=== PATIENT | female | born 1990 | race Caucasian/White ===

== ENCOUNTER 2016-10-18 10:07 | Inpatient (IN) | payer BC ==
[2016-10-18 10:42] VITALS: BMI 20.1
--- NOTE | 2016-10-18 13:44 | HP ---
COWS - Scale Resting Pulse: 1= [place] 81-100 Sweatin= Chills/Flushing Restless Observation: 1= Difficult to Sit Still Pupil Size: 0= Normal to Room Light Bone or Joint Aches: 2= Severe Diffuse Aches Runny Nose/ Eye Tearin= Runny Nose/Eyes GI Upset > 30mins: 3= Vomiting/Diarrhea Tremor Observation: 2= Slight Tremor Visible Yawning Observation: 1= 1-2x During Session Anxiety or Irritability: 2=Irritable/Anxious Goose Flesh Skin: 3=Piloerection COWS Score: 18 CIWA Score - CIWA Score Nausea/Vomitin Muscle Tremors: 3 Anxiety: 4-Mod. Anxious/Guarded Agitation: 0-Normal Activity Paroxysmal Sweats: 3 Orientation: 0-Oriented Tacttile Disturbances: 2-Mild Itch/Numbness/Burn Auditory Disturbances: 0-None Visual Disturbances: 2-Mild Sensitivity Headache: 2-Mild CIWA-Ar Total Score: 21 Admission ROS [facility] - HPI Chief Complaint: "I don't want this to get worse or one day from it. I want a better life for myself and for my family." Pt. is here to Detox from Heroin and Xanax. Allergies/Adverse Reactions: Allergies Allergy/AdvReac Type Severity Reaction Status Date / Time No Known Allergies Allergy Verified 10/18/16 12:36 History of Present Illness: Pt. is a 26 YO female here to Detox from Heroin and Xanax. This is pt.'s first Detox admission at [facility]. Exam Limitations: No Limitations - Ebola screening Have you traveled outside of the country in the last 21 days: No Have you had contact with anyone from an Ebola affected area: No Have you been sick,other than usual withdrawal symptoms: No Do you have a fever: No - Review of Systems Constitutional: Chills, Diaphoresis, Fever, Malaise, Night Sweats, Changes in sleep EENT: reports: Tearing, Nose Congestion, Sinus Pressure Respiratory: reports: No Symptoms reported Cardiac: reports: No Symptoms Reported GI: reports: Constipated, Nausea, Poor Appetite, Vomiting, Indigestion ( Heartburn.), Abdominal cramping : reports: Other (History of Frequent UTI's.) Musculoskeletal: reports: No Symptoms Reported Integumentary: reports: No Symptoms Reported Neuro: reports: Headache (Migraines, Not Current.), Tremors Endocrine: reports: No Symptoms Reported Hematology: reports: Easy Bruising Psychiatric: reports: Judgement Intact, Mood/Affect Appropiate, Orientated x3, Anxious, Depressed Other Systems: Reviewed and Negative Patient History - Patient Medical History Hx Anemia: No Hx Asthma: Yes (On meds.) Hx Chronic Obstructive Pulmonary Disease (COPD): No Hx Cancer: No Hx Cardiac Disorders: No Hx Congestive Heart Failure: No Hx Hypertension: No Hx Hypercholesterolemia: No Hx Pacemaker: No HX Cerebrovascular Accident: No Hx Seizures: No Hx Dementia: No Hx Diabetes: No Hx Gastrointestinal Disorders: No Hx Liver Disease: No Hx Genitourinary Disorders: No Hx Sexually Transmitted Disorders: No Hx Renal Disease (ESRD): No Hx Thyroid Disease: No Hx Human Immunodeficiency Virus (HIV): No (Last tested: approx. 6 months ago: NEGATIVE.) Hx Hepatitis C: No (Never Tested.) Hx Depression: Yes (Formerly on meds.; NO MEDS. CURRENTLY.) Hx Suicide Attempt: No (PATIENT DENIES CURRENT SI / HI.) Hx Bipolar Disorder: No Hx Schizophrenia: No Other Medical History: DENIES. - Patient Surgical History Past Surgical History: No Hx Neurologic Surgery: No Hx Cataract Extraction: No Hx Cardiac Surgery: No Hx Lung Surgery: No Hx Breast Surgery: No Hx Breast Biopsy: No Hx Abdominal Surgery: No Hx Appendectomy: No Hx Cholecystectomy: No Hx Genitourinary Surgery: No Hx Section: No Hx Orthopedic Surgery: No Hx Hysterectomy: No Other Surgical History: Bunion Removal, Bilateral Feet (2012). Anesthesia Reaction: No - PPD History Previous Implant?: Yes Documented Results: Negative w/o proof Implanted On Prior R Admission?: No PPD to be Administered?: Yes - Reproductive History Patient is a Female of Child Bearing Age (11 -55 yrs old): Yes Last Menstrual Period: 10/14/16 Patient : No - Smoking Cessation Smoking history: Current every day smoker Have you smoked in the past 12 months: Yes Aproximately how many cigarettes per day: 20 Cigars Per Day: 0 Hx Chewing Tobacco Use: No Initiated information on smoking cessation: Yes 'Breaking Loose' booklet given: 10/18/16 (GIVEN ON UNIT.) - Substance & Tx. History Hx Alcohol Use: No Hx Substance Use: Yes Substance Use Type: Cocaine, Heroin, Tranquilizers Hx Substance Use Treatment: No - Substances Abused Heroin Route: Inhalation Frequency: Daily Amount used: 10 bags Age of first use: 24 Date of Last Use: 10/18/16 Cocaine Route: Inhalation Frequency: 3-6 times per week Amount used: $60 Age of first use: 16 Date of Last Use: 10/16/16 Alprazolam (Xanax) Route: Oral Frequency: Daily Amount used: 2-3(.5mg) Age of first use: 21 Date of Last Use: 10/18/16 Admission Physical Exam [facility] - Vital Signs Vital Signs: Vital Signs - 24 hr 10/18/16 10:38 Temperature 97.2 F L Pulse Rate 90 Respiratory 20 Rate Blood Pressure 116/61 - Physical General Appearance: Yes: Nourished, Appropriately Dressed, Mild Distress, Tremorous, Anxious HEENTM: Yes: Hearing grossly Normal, Normocephalic, Normal Voice, NILDA, Pharynx Normal Respiratory: Yes: Chest Non-Tender, Lungs Clear, No Respiratory Distress, No Accessory Muscle Use Neck: Yes: No masses,lesions,Nodules, Supple, Trachea in good position Breast: Yes: Breast Exam Deferred Cardiology: Yes: Regular Rhythm, Regular Rate, S1, S2 Abdominal: Yes: Normal Bowel Sounds, Non Tender, Flat, Soft Genitourinary: Yes: Within Normal Limits Back: Yes: Decreased Range of Motion Musculoskeletal: Yes: Gait Steady Extremities: Yes: Normal Range of Motion, Non-Tender, Tremors Neurological: Yes: Fully Oriented, Alert, Normal Mood/Affect, Normal Response Integumentary: Yes: Normal Color, Dry, Warm Lymphatic: Yes: Within Normal Limits - Diagnostic (1) Alcohol dependence with uncomplicated withdrawal Current Visit: Yes Status: Acute (2) Sedative, hypnotic or anxiolytic dependence with withdrawal, uncomplicated Current Visit: Yes Status: Acute (3) Cocaine dependence, uncomplicated Current Visit: Yes Status: Acute (4) Nicotine dependence Current Visit: Yes Status: Chronic Qualifiers: Nicotine product type: cigarettes Substance use status: uncomplicated Qualified Code(s): F17.210 - Nicotine dependence, cigarettes, uncomplicated (5) Asthma Current Visit: Yes Status: Chronic Qualifiers: Asthma severity: mild persistent Asthma complication type: uncomplicated Qualified Code(s): J45.30 - Mild persistent asthma, uncomplicated (6) History of depression Current Visit: Yes Status: Chronic Cleared for Admission [facility] - Detox or Rehab [facility] Level of Care: Medically Managed Detox Regimen/Protocol: Methadone/Valium [facility] Breath Alcohol Content Breath Alcohol Content: 0 Urine Pregancy Test - Result Urine Test Results: Negative- NO Line Present Urine Drug Screen - Results Drug Screen Negative: No Urine Drug Screen Results: DEVEN-Cocaine, OPI-Opiates, BZO-Benzodiazepines, TCA- Tricyclic Antidepress, OXY-Oxycodone
[2016-10-18] MEDS ORDERED: ACETAMINOPHEN 325 MG TABLET (FP) PO PRN (14:15)
[2016-10-18] MEDS ORDERED: diazePAM 5 MG TABLET PO ONE (14:15)
[2016-10-18] MEDS ORDERED: guaiFENesin/D-METHORPHAN HB 10 ML UNIT-DOSE CUPS PO PRN (14:15)
[2016-10-18] MEDS ORDERED: METHADONE HCL 10 MG TABLET (FOR DETOX USE ONLY) PO ONE ×2 (14:15→23:00)
[2016-10-18] MEDS ORDERED: IBUPROFEN 400 MG TABLET (FP) PO PRN (14:15)
[2016-10-18] MEDS ORDERED: MAGNESIUM CITRATE 300 ML BOTTLE PO PRN (14:15)
[2016-10-18] MEDS ORDERED: NICOTINE POLACRILEX 2 MG GUM BC PRN (14:15)
[2016-10-18] MEDS ORDERED: MAGNESIUM HYDROX 2400MG/30ML ORAL SUSPENSION 30 ML CUP PO PRN (14:15)
[2016-10-18] MEDS ORDERED: LOPERAMIDE HCL 2 MG CAPSULE PO PRN (14:15)
[2016-10-18] MEDS ORDERED: MAG HYDROX/AL HYDROX/SIMETH 30 ML UNIT-DOSE CUP PO PRN (14:15)
[2016-10-18] MEDS ORDERED: P-EPHED 60MG/TRIPROLIDI 2.5MG TABLET PO PRN (14:15)
[2016-10-18] MEDS ORDERED: MENTHOL/PHENOL 1 EACH UD MM PRN (14:15)
[2016-10-18] MEDS ORDERED: ALBUTEROL SO4 6.7 GM HFA INHALER IH PRN (14:21)
[2016-10-18] MEDS: NICOTINE 21 MG/24 HOURS TOPICAL PATCH TD SCH (15:38)
[2016-10-18] MEDS: diazePAM 5 MG TABLET PO SCH ×2 (15:38→22:30)
[2016-10-18 18:23] LABS: URINE APPEARANCE CLOUDY; URINE BILIRUBIN NEGATIVE (NEGATIVE); URINE BLOOD 1+ (NEGATIVE); URINE COLOR LTYELLOW; URINE GLUCOSE (UA) NEGATIVE (NEGATIVE); URINE KETONE NEGATIVE (NEGATIVE); URINE LEUK ESTERASE NEGATIVE (NEGATIVE); URINE NITRITE NEGATIVE (NEGATIVE); URINE PROTEIN NEGATIVE (NEGATIVE); URINE UROBILINOGEN NEGATIVE mg/dL (0.2-1.0)
[2016-10-18 18:45] LABS: URINE RBC 2 /hpf (0-3); URINE WBC 5 /hpf (3-5); YEAST MANY
[2016-10-18] MEDS ORDERED: PATIENT'S OWN MEDICATION (NON-FORMULARY) (Fluticasone/Vilanterol [Breo Ellipta 200-25 Mcg IH SCH (22:00)
[2016-10-18] MEDS: MONTELUKAST NA 10 MG TABLET PO SCH (22:31)
[2016-10-18] MEDS: THIAMINE HCL 100 MG TABLET (FP) PO SCH (22:31)
[2016-10-18] MEDS: diphenhydrAMINE HCL 50 MG CAPSULE PO PRN (22:32)
[2016-10-19] MEDS: diazePAM 5 MG TABLET PO SCH ×3 (05:51→22:30)
--- NOTE | 2016-10-19 08:44 | CONSULT ---
[facility] Psychiatric Consult - Data Date of interview: 10/19/16 Admission source: [facility] Identifying data: This is 26 years old female with no psychiatric hospitalization history intoxicated with : Alcohol, Cocaine, Opioids, Xanax and Nicotine Substance Abuse History: - Smoking Cessation. Smoking history: Current every day smoker. Have you smoked in the past 12 months: Yes. Aproximately how many cigarettes per day: 20. Cigars Per Day: 0. Hx Chewing Tobacco Use: No. Initiated information on smoking cessation: Yes. 'Breaking Loose' booklet given : 10/18/16 (GIVEN ON UNIT.). - Substance & Tx. History. Hx Alcohol Use: No. Hx Substance Use: Yes. Substance Use Type: Cocaine, Heroin, Tranquilizers. Hx Substance Use Treatment: No. - Substances Abused. Heroin. Route: Inhalation. Frequency: Daily. Amount used: 10 bags. Age of first use: 24. Date of Last Use: 10/18/16. Cocaine. Route: Inhalation. Frequency: 3-6 times per week. Amount used: $60. Age of first use: 16. Date of Last Use: . Alprazolam (Xanax). Route: Oral. Frequency: Daily. Amount used: 2- 3(.5mg). Age of first use: 21. Date of Last Use: 10/18/16 Medical History: Denies any significant medical problem Psychiatric History: As per chart tehre is a history of depression, patoent denies suicidal history, reports no medications taking prior to admission Physical/Sexual Abuse/Trauma History: Denies Additional Comment: Observation. Detox Unit Care Protocol Mental Status Exam - Mental Status Exam Alert and Oriented to: Person Cognitive Function: Fair Patient Appearance: Unkempt Mood: Sad Affect: Flat Patient Behavior: Sedated Speech Pattern: Delayed Voice Loudness: Mildly Soft/Quiet Thought Disorder: Being Controlled Hallucinations: Denies Suicidal Ideation: Denies Homicidal Ideation: Denies Insight/Judgement: Fair Sleep: Difficulty falling asleep Appetite: Weight loss Muscle strength/Tone: Mild Hypotonicity Gait/Station: Shuffling Additional Comments: Observation. Detox Unit Care Protocol Psychiatric Findings - Problem List ([place] 1, 2,3) (1) Alcohol dependence with uncomplicated withdrawal Current Visit: Yes Status: Acute (2) Cocaine dependence, uncomplicated Current Visit: Yes Status: Acute (3) Opioid dependence with withdrawal Current Visit: Yes Status: Acute (4) Sedative, hypnotic or anxiolytic dependence with withdrawal, uncomplicated Current Visit: Yes Status: Acute (5) Nicotine dependence Current Visit: Yes Status: Chronic Qualifiers: Nicotine product type: cigarettes Substance use status: uncomplicated Qualified Code(s): F17.210 - Nicotine dependence, cigarettes, uncomplicated (6) Drug-induced mood disorder Current Visit: Yes Status: Acute - Initial Treatment Plan Initial Treatment Plan: Observation. Detox Unit Care Protocol
[2016-10-19] MEDS ORDERED: METHADONE HCL 10 MG TABLET (FOR DETOX USE ONLY) PO SCH (10:00)
[2016-10-19 10:04] LABS: MCH 33.1 pg (25.7-33.7); MCHC 34.4 g/dl (32.0-36.0); MEAN CELL VOLUME 96.2 fl (80-96); MEAN PLT VOLUME 8.2 fl (7.5-11.1); PLATELET COUNT 238 K/MM3 (134-434); RDW 13.2 % (11.6-15.6); WHITE BLOOD COUNT 5.9 K/mm3 (4.0-10.0)
[2016-10-19] MEDS: PRENATAL VITAMINS W/ FOLIC ACID TABLET (FP) PO SCH (10:18)
[2016-10-19] MEDS: NICOTINE 21 MG/24 HOURS TOPICAL PATCH TD SCH (10:19)
[2016-10-19 10:26] LABS: ALBUMIN 3.5 g/dl (3.4-5.0); ALK PHOS 52 U/L (45-117); ANION GAP 9 (8-16); BILIRUBIN,TOTAL 0.5 mg/dL (0.2-1.0); CALCIUM 8.9 mg/dL (8.5-10.1); CO2 27 mmol/L (21-32); CREATININE 0.8 mg/dL (0.55-1.02); GLUCOSE,RANDOM 87 mg/dL (74-106); SGOT/AST 11 U/L (15-37); SGPT/ALT 18 U/L (12-78); TOT PROT 6.4 g/dl (6.4-8.2)
[2016-10-19 11:22] LABS: HIV 1 & 2 AB NEGATIVE; HIV 1 AGp24 NEGATIVE
--- NOTE | 2016-10-19 12:01 | PN ---
[facility] CIWA - CIWA Score Nausea/Vomitin-No Nausea/No Vomiting Muscle Tremors: 4-Moderate,w/Arms Extend Anxiety: 4-Mod. Anxious/Guarded Agitation: 4-Moderately Restless Paroxysmal Sweats: 3 Orientation: 0-Oriented Tacttile Disturbances: 0-None Auditory Disturbances: 0-None Visual Disturbances: 0-None Headache: 0-None Present CIWA-Ar Total Score: 15 S COWS - Scale Resting Pulse: 1= [place] 81-100 Sweatin=Flushed/Facial Moisture Restless Observation: 1= Difficult to Sit Still Pupil Size: 0= Normal to Room Light Bone or Joint Aches: 2= Severe Diffuse Aches Runny Nose/ Eye Tearin= Runny Nose/Eyes GI Upset > 30mins: 0= None Tremor Observation of Outstretched Hands: 2= Slight Tremor Visible Yawning Observation: 1= 1-2x During Session Anxiety or Irritability: 2=Irritable/Anxious Goose Flesh Skin: 3=Piloerection COWS Score: 16 [facility] Progress Note (SOAP) Subjective: anxiety shakes sweats interrupted sleep Objective: 10/19/16 11:56 Vital Signs Temperature 97.5 F L 10/19/16 10:48 Pulse Rate 88 10/19/16 10:48 Respiratory Rate 18 10/19/16 10:48 Blood Pressure 147/87 10/19/16 10:48 O2 Sat by Pulse Oximetry (%) Laboratory Tests 10/18/16 10/19/16 10/19/16 16:45 07:00 07:00 WBC 5.9 RBC 4.30 Hgb 14.2 Hct 41.4 MCV 96.2 H MCH 33.1 MCHC 34.4 RDW 13.2 Plt Count 238 MPV 8.2 Sodium Potassium Chloride Carbon Dioxide Anion Gap BUN Creatinine Creat Clearance w eGFR Random Glucose Calcium Total Bilirubin AST ALT Alkaline Phosphatase Total Protein Albumin Urine Color Ltyellow Urine Appearance Cloudy Urine pH 8.0 Ur Specific [place] 1.015 Urine Protein Negative Urine Glucose (UA) Negative Urine Ketones Negative Urine Blood 1+ H Urine Nitrite Negative Urine Bilirubin Negative Urine Urobilinogen Negative Ur Leukocyte Esterase Negative Urine RBC 2 Urine WBC 5 Ur Epithelial Cells Rare Urine Yeast Many HIV 1&2 Antibody Screen Negative HIV P24 Antigen Negative 10/19/16 07:00 WBC RBC Hgb Hct MCV MCH MCHC RDW Plt Count MPV Sodium 140 Potassium 4.0 Chloride 104 Carbon Dioxide 27 Anion Gap 9 BUN 7 Creatinine 0.8 Creat Clearance w eGFR > 60 Random Glucose 87 Calcium 8.9 Total Bilirubin 0.5 AST 11 L ALT 18 Alkaline Phosphatase 52 Total Protein 6.4 Albumin 3.5 Urine Color Urine Appearance Urine pH Ur Specific [place] Urine Protein Urine Glucose (UA) Urine Ketones Urine Blood Urine Nitrite Urine Bilirubin Urine Urobilinogen Ur Leukocyte Esterase Urine RBC Urine WBC Ur Epithelial Cells Urine Yeast HIV 1&2 Antibody Screen HIV P24 Antigen awake/alert ambulating no acute distress Assessment: 10/19/16 11:57 withdrawal sx Plan: continue detox increase fluids clonidine 0.1mg x one
[2016-10-19] MEDS ORDERED: cloNIDine HCL 0.1 MG TABLET PO ONE (12:30)
[2016-10-19] MEDS: BUDESONIDE/FORMETEROL FUMARATE 160/4.5 mcg INHALER IH SCH ×2 (14:54→22:31)
[2016-10-19] MEDS: diazePAM 5 MG TABLET PO PRN (17:23)
[2016-10-19] MEDS: diphenhydrAMINE HCL 50 MG CAPSULE PO PRN (22:30)
[2016-10-19] MEDS: MONTELUKAST NA 10 MG TABLET PO SCH (22:30)
[2016-10-19] MEDS: THIAMINE HCL 100 MG TABLET (FP) PO SCH (22:30)
[2016-10-20] MEDS: diazePAM 5 MG TABLET PO PRN ×2 (06:36→17:20)
[2016-10-20] MEDS: METHADONE HCL 5 MG TABLET (FOR DETOX USE ONLY) PO SCH (10:49)
[2016-10-20] MEDS: diazePAM 5 MG TABLET PO SCH ×2 (10:49→22:23)
[2016-10-20] MEDS: BUDESONIDE/FORMETEROL FUMARATE 160/4.5 mcg INHALER IH SCH ×2 (10:49→22:22)
[2016-10-20] MEDS: PRENATAL VITAMINS W/ FOLIC ACID TABLET (FP) PO SCH (10:49)
[2016-10-20] MEDS: NICOTINE 21 MG/24 HOURS TOPICAL PATCH TD SCH (10:50)
--- NOTE | 2016-10-20 12:46 | PN ---
[facility] CIWA - CIWA Score Nausea/Vomitin-No Nausea/No Vomiting Muscle Tremors: 3 Anxiety: 4-Mod. Anxious/Guarded Agitation: 3 Paroxysmal Sweats: 3 Orientation: 0-Oriented Tacttile Disturbances: 0-None Auditory Disturbances: 0-None Visual Disturbances: 0-None Headache: 0-None Present CIWA-Ar Total Score: 13 [facility] COWS - Scale Resting Pulse: 1= [place] 81-100 Sweatin=Flushed/Facial Moisture Restless Observation: 1= Difficult to Sit Still Pupil Size: 0= Normal to Room Light Bone or Joint Aches: 1= Mild Discomfort Runny Nose/ Eye Tearin= Runny Nose/Eyes GI Upset > 30mins: 2= Nausea/Diarrhea Tremor Observation of Outstretched Hands: 2= Slight Tremor Visible Yawning Observation: 1= 1-2x During Session Anxiety or Irritability: 2=Irritable/Anxious Goose Flesh Skin: 0=Smooth Skin COWS Score: 14 S Progress Note (SOAP) Subjective: Anxiety,sweating,tremors,interrupted sleep,restless,nausea Objective: 10/20/16 12:45 Vital Signs - 8 hr 10/20/16 10/20/16 06:00 09:43 Temperature 97.3 F L 97.5 F L Pulse Rate 84 84 Respiratory 16 18 Rate Blood Pressure 107/51 105/54 Laboratory Last Values WBC 5.9 K/mm3 (4.0-10.0) 10/19/16 07:00 RBC 4.30 M/mm3 (3.60-5.2) 10/19/16 07:00 Hgb 14.2 GM/dL (10.7-15.3) 10/19/16 07:00 Hct 41.4 % (32.4-45.2) 10/19/16 07:00 MCV 96.2 fl (80-96) H 10/19/16 07:00 MCH 33.1 pg (25.7-33.7) 10/19/16 07:00 MCHC 34.4 g/dl (32.0-36.0) 10/19/16 07:00 RDW 13.2 % (11.6-15.6) 10/19/16 07:00 Plt Count 238 K/MM3 (134-434) 10/19/16 07:00 MPV 8.2 fl (7.5-11.1) 10/19/16 07:00 Sodium 140 mmol/L (136-145) 10/19/16 07:00 Potassium 4.0 mmol/L (3.5-5.1) 10/19/16 07:00 Chloride 104 mmol/L (98-107) 10/19/16 07:00 Carbon Dioxide 27 mmol/L (21-32) 10/19/16 07:00 Anion Gap 9 (8-16) 10/19/16 07:00 BUN 7 mg/dL (7-18) 10/19/16 07:00 Creatinine 0.8 mg/dL (0.55-1.02) 10/19/16 07:00 Creat Clearance w eGFR > 60 (>60) 10/19/16 07:00 Random Glucose 87 mg/dL (74-106) 10/19/16 07:00 Calcium 8.9 mg/dL (8.5-10.1) 10/19/16 07:00 Total Bilirubin 0.5 mg/dL (0.2-1.0) 10/19/16 07:00 AST 11 U/L (15-37) L 10/19/16 07:00 ALT 18 U/L (12-78) 10/19/16 07:00 Alkaline Phosphatase 52 U/L (45-117) 10/19/16 07:00 Total Protein 6.4 g/dl (6.4-8.2) 10/19/16 07:00 Albumin 3.5 g/dl (3.4-5.0) 10/19/16 07:00 Urine Color Ltyellow 10/18/16 16:45 Urine Appearance Cloudy 10/18/16 16:45 Urine pH 8.0 (5.0-8.0) 10/18/16 16:45 Ur Specific [place] 1.015 (1.005-1.025) 10/18/16 16:45 Urine Protein Negative (NEGATIVE) 10/18/16 16:45 Urine Glucose (UA) Negative (NEGATIVE) 10/18/16 16:45 Urine Ketones Negative (NEGATIVE) 10/18/16 16:45 Urine Blood 1+ (NEGATIVE) H 10/18/16 16:45 Urine Nitrite Negative (NEGATIVE) 10/18/16 16:45 Urine Bilirubin Negative (NEGATIVE) 10/18/16 16:45 Urine Urobilinogen Negative mg/dL (0.2-1.0) 10/18/16 16:45 Ur Leukocyte Esterase Negative (NEGATIVE) 10/18/16 16:45 Urine RBC 2 /hpf (0-3) 10/18/16 16:45 Urine WBC 5 /hpf (3-5) 10/18/16 16:45 Ur Epithelial Cells Rare /hpf (FEW) 10/18/16 16:45 Urine Yeast Many 10/18/16 16:45 RPR Titer Nonreactive (NONREACTIVE) 10/19/16 07:00 Hepatitis C Antibody <0.1 s/co ratio (0.0-0.9) 10/18/16 07:00 HIV 1&2 Antibody Screen Negative 10/19/16 07:00 HIV P24 Antigen Negative 10/19/16 07:00 labs noted,we'll repeat U/A Assessment: 10/20/16 12:46 Withdrawal sx. Plan: Continue detox
[2016-10-20] MEDS: MONTELUKAST NA 10 MG TABLET PO SCH (22:22)
[2016-10-20] MEDS: diphenhydrAMINE HCL 50 MG CAPSULE PO PRN (22:23)
[2016-10-20] MEDS: THIAMINE HCL 100 MG TABLET (FP) PO SCH (22:23)
[2016-10-20] MEDS: hydrOXYzine PAMOATE 50 MG CAPSULE (FP) PO PRN (23:04)
[2016-10-21] MEDS: diazePAM 5 MG TABLET PO PRN (06:55)
[2016-10-21] MEDS: PRENATAL VITAMINS W/ FOLIC ACID TABLET (FP) PO SCH (10:50)
[2016-10-21] MEDS: NICOTINE 21 MG/24 HOURS TOPICAL PATCH TD SCH (10:50)
[2016-10-21] MEDS: diazePAM 5 MG TABLET PO SCH ×2 (10:50→22:33)
[2016-10-21] MEDS: METHADONE HCL 5 MG TABLET (FOR DETOX USE ONLY) PO SCH (10:50)
[2016-10-21] MEDS: BUDESONIDE/FORMETEROL FUMARATE 160/4.5 mcg INHALER IH SCH ×2 (10:50→22:33)
--- NOTE | 2016-10-21 11:37 | PN ---
[facility] Progress Note (SOAP) Subjective: interrupted sleep, sweats, Objective: 10/21/16 11:36 Vital Signs Temperature 97.3 F L 10/21/16 10:06 Pulse Rate 83 10/21/16 10:06 Respiratory Rate 18 10/21/16 10:06 Blood Pressure 128/54 10/21/16 10:06 O2 Sat by Pulse Oximetry (%) Laboratory Tests 10/18/16 10/18/16 10/19/16 07:00 16:45 07:00 WBC RBC Hgb Hct MCV MCH MCHC RDW Plt Count MPV Sodium Potassium Chloride Carbon Dioxide Anion Gap BUN Creatinine Creat Clearance w eGFR Random Glucose Calcium Total Bilirubin AST ALT Alkaline Phosphatase Total Protein Albumin Urine Color Ltyellow Urine Appearance Cloudy Urine pH 8.0 Ur Specific [place] 1.015 Urine Protein Negative Urine Glucose (UA) Negative Urine Ketones Negative Urine Blood 1+ H Urine Nitrite Negative Urine Bilirubin Negative Urine Urobilinogen Negative Ur Leukocyte Esterase Negative Urine RBC 2 Urine WBC 5 Ur Epithelial Cells Rare Urine Yeast Many RPR Titer Hepatitis C Antibody <0.1 HIV 1&2 Antibody Screen Negative HIV P24 Antigen Negative 10/19/16 10/19/16 10/19/16 07:00 07:00 07:00 WBC 5.9 RBC 4.30 Hgb 14.2 Hct 41.4 MCV 96.2 H MCH 33.1 MCHC 34.4 RDW 13.2 Plt Count 238 MPV 8.2 Sodium 140 Potassium 4.0 Chloride 104 Carbon Dioxide 27 Anion Gap 9 BUN 7 Creatinine 0.8 Creat Clearance w eGFR > 60 Random Glucose 87 Calcium 8.9 Total Bilirubin 0.5 AST 11 L ALT 18 Alkaline Phosphatase 52 Total Protein 6.4 Albumin 3.5 Urine Color Urine Appearance Urine pH Ur Specific [place] Urine Protein Urine Glucose (UA) Urine Ketones Urine Blood Urine Nitrite Urine Bilirubin Urine Urobilinogen Ur Leukocyte Esterase Urine RBC Urine WBC Ur Epithelial Cells Urine Yeast RPR Titer Nonreactive Hepatitis C Antibody HIV 1&2 Antibody Screen HIV P24 Antigen pt aox3 in nad ambulating Assessment: 10/21/16 11:36 withdrawal sx's Plan: cont. detox increase fluids
--- NOTE | 2016-10-21 12:57 | EKG ---
Test Reason : Blood Pressure : / mmHG Vent. Rate : 058 BPM Atrial Rate : 058 BPM P-R Int : 140 ms QRS Dur : 086 ms QT Int : 470 ms P-R-T Axes : -89 084 046 degrees QTc Int : 461 ms UNUSUAL P AXIS, POSSIBLE ECTOPIC ATRIAL BRADYCARDIA ABNORMAL ECG NO PREVIOUS ECGS AVAILABLE Confirmed by ONESIMO GONZALES MD ([id number]) on 10/21/2016 12:56:53 PM Referred By: Confirmed By:ONESIMO GONZALES MD
[2016-10-21] MEDS: hydrOXYzine PAMOATE 50 MG CAPSULE (FP) PO PRN (15:25)
[2016-10-21] MEDS: MONTELUKAST NA 10 MG TABLET PO SCH (22:33)
[2016-10-21] MEDS: THIAMINE HCL 100 MG TABLET (FP) PO SCH (22:33)
[2016-10-21] MEDS: diphenhydrAMINE HCL 50 MG CAPSULE PO PRN (22:33)
[2016-10-22] MEDS: diphenhydrAMINE HCL 50 MG CAPSULE PO PRN ×2 (00:35→22:28)
[2016-10-22] MEDS: hydrOXYzine PAMOATE 50 MG CAPSULE (FP) PO PRN ×3 (01:46→17:32)
[2016-10-22] MEDS ORDERED: diazePAM 5 MG TABLET PO SCH (10:00)
[2016-10-22] MEDS ORDERED: METHADONE HCL 10 MG TABLET (FOR DETOX USE ONLY) PO SCH (10:00)
[2016-10-22] MEDS: NICOTINE 21 MG/24 HOURS TOPICAL PATCH TD SCH (10:50)
[2016-10-22] MEDS: BUDESONIDE/FORMETEROL FUMARATE 160/4.5 mcg INHALER IH SCH ×2 (10:50→22:28)
[2016-10-22] MEDS: PRENATAL VITAMINS W/ FOLIC ACID TABLET (FP) PO SCH (10:50)
--- NOTE | 2016-10-22 12:09 | PN ---
[facility] Progress Note (SOAP) Subjective: anxiety sweats chills Objective: 10/22/16 12:09 Vital Signs Temperature 97.9 F 10/22/16 10:04 Pulse Rate 72 10/22/16 10:04 Respiratory Rate 18 10/22/16 10:04 Blood Pressure 150/86 10/22/16 10:04 O2 Sat by Pulse Oximetry (%) awake/alert ambulating no acute distress Assessment: 10/22/16 12:09 withdrawal sx Plan: continue detox increase fluids clonidine 0.1mg bid with parameters d/c in am
[2016-10-22] MEDS: cloNIDine HCL 0.1 MG TABLET PO SCH ×2 (14:05→22:28)
[2016-10-22] MEDS: MONTELUKAST NA 10 MG TABLET PO SCH (22:28)
[2016-10-22] MEDS: THIAMINE HCL 100 MG TABLET (FP) PO SCH (22:29)
[2016-10-23] MEDS: diphenhydrAMINE HCL 50 MG CAPSULE PO PRN (00:28)
[2016-10-23] MEDS: hydrOXYzine PAMOATE 50 MG CAPSULE (FP) PO PRN (04:19)
[2016-10-23] MEDS ORDERED: METHADONE HCL 5 MG TABLET (FOR DETOX USE ONLY) PO SCH (06:00)
[2016-10-23 06:39] VITALS: BP 96/61; PULSE 51; TEMP 97.2
[2016-10-23] MEDS: PRENATAL VITAMINS W/ FOLIC ACID TABLET (FP) PO SCH (09:11)
[2016-10-23] MEDS: BUDESONIDE/FORMETEROL FUMARATE 160/4.5 mcg INHALER IH SCH (09:11)
[2016-10-23] MEDS: cloNIDine HCL 0.1 MG TABLET PO SCH (09:11)
[2016-10-23] MEDS: NICOTINE 21 MG/24 HOURS TOPICAL PATCH TD SCH (09:11)
--- NOTE | 2016-10-23 09:24 | DS ---
[facility] Detox Discharge Summary Admission Date: 10/18/16 Discharge Date: 10/23/16 - History Present History: Alcohol Dependence, Cocaine Dependence, Opioid Dependence, Sedative Dependence - Physical Exam Results Vital Signs: Vital Signs Temperature 97.2 F L 10/23/16 06:39 Pulse Rate 51 L 10/23/16 06:39 Respiratory Rate 16 10/23/16 06:39 Blood Pressure 96/61 10/23/16 06:39 O2 Sat by Pulse Oximetry (%) - Treatment Hospital Course: Detox Protocol Followed, Detoxed Safely, Responded well, Discharged Condition Good, Rehab Referral Accepted - Medication Discharge Medications: Ambulatory Orders Albuterol Sulfate Inhaler - [Ventolin Hfa Inhaler -] 2 inh PO Q4H PRN 10/18/16 Fluticasone/Vilanterol [Breo Ellipta 200-25 Mcg INH] 1 each IH HS 10/18/16 Montelukast Na [Singulair -] 10 mg PO HS 10/18/16 - Diagnosis (1) Alcohol dependence with uncomplicated withdrawal Current Visit: Yes Status: Chronic (2) Cocaine dependence, uncomplicated Current Visit: Yes Status: Chronic (3) Drug-induced mood disorder Current Visit: Yes Status: Acute (4) Opioid dependence with withdrawal Current Visit: Yes Status: Chronic (5) Sedative, hypnotic or anxiolytic dependence with withdrawal, uncomplicated Current Visit: Yes Status: Chronic (6) Asthma Current Visit: Yes Status: Chronic Qualifiers: Asthma severity: mild persistent Asthma complication type: uncomplicated Qualified Code(s): J45.30 - Mild persistent asthma, uncomplicated (7) History of depression Current Visit: Yes Status: Chronic (8) Nicotine dependence Current Visit: Yes Status: Chronic Qualifiers: Nicotine product type: cigarettes Substance use status: uncomplicated Qualified Code(s): F17.210 - Nicotine dependence, cigarettes, uncomplicated - AMA Did Patient Leave Against Medical Advice: No (going home and f/u PMD &/ outpatient)
== END 2016-10-23 09:47 | disposition home or self-care (01) | DRG 773 ==
LOC: YASAS 10:07 → Y6N 13:28
PROVIDERS: ADMIT Internal Medicine; ATTEND Internal Medicine
PROC: HZ2ZZZZ Detoxification Services for Substance Abuse Treatment (ICD-10-PCS; principal; 2016-10-23)
DX: F11.23 Opioid dependence with withdrawal (principal); F13.230 Sedative, hypnotic or anxiolytic dependence with withdrawal, uncomplicated; F10.230 Alcohol dependence with withdrawal, uncomplicated; F14.20 Cocaine dependence, uncomplicated; F17.210 Nicotine dependence, cigarettes, uncomplicated; F32.9 Major depressive disorder, single episode, unspecified; F19.24 Other psychoactive substance dependence with psychoactive substance-induced mood disorder; J45.20 Mild intermittent asthma, uncomplicated
CPT/HCPCS: 36415; 80053; 81003; 81015; 85027; 86593; 86803; 87389; 93005; 93010